=== PATIENT | female | born 1955 | race Caucasian/White ===

== ENCOUNTER → 2018-01-19 12:21 | Outpatient (CLI) | payer BC, SELFPAY ==
[2018-01-19 13:12] LABS: Add Manual Diff / Slide Review NO; Basophils Percent Auto 1.8 % (0-2); Eosinophils Percent Auto 4.3 % (2-4); Hematocrit 43.3 % (36-46); Hemoglobin 14.6 g/dL (12.0-16.0); Lymphocytes Percent Auto 31.5 % (25-40); Mean Corpuscular HGB Conc 33.7 % (30-36); Mean Corpuscular Volume 89.1 fL (80-100); Monocytes Percent Auto 6.9 % (3-14); Neutrophils Absolute Auto 3400 /uL (3000-5900); Neutrophils Percent Auto 55.5 % (50-75); Platelet Count 230 X10^3/uL (150-400); Red Blood Cell Count 4.86 X10^6/uL (4.0-5.2); Red Cell Distribution Width 13.1 % (11.6-14.8); White Blood Cell Count 6.1 X10^3/uL (4.5-11.0)
[2018-01-19 13:52] LABS: Alanine Aminotransferase 24 IU/L (9-52); Albumin 4.4 g/dL (3.5-5.0); Albumin Globulin Ratio 1.2 (1.0-2.8); Alkaline Phosphatase 102 U/L (38-126); Aspartate Aminotransferase 24 IU/L (14-36); Bilirubin Total 0.8 mg/dL (0.2-1.3); Blood Urea Nitrogen 14 mg/dL (7-17); Calcium 8.8 mg/dL (8.4-10.2); Carbon Dioxide 26 mmol/L (22-32); Chloride 104 mmol/L (98-107); Cholesterol 250 mg/dL (140-199); Estimated Glomerular Filt Rate 56.4 mL/min (>60); Globulin 3.6 g/dL (1.7-4.1); Glucose 98 mg/dL (80-110); HDL Cholesterol 55 mg/dL (40-60); HEMOLYSIS 25 (0-50); LDL Cholesterol Calculated 161 mg/dL (<100); Sodium 141 mmol/L (137-145); Triglycerides 168 mg/dL (35-150)
[2018-01-19 14:29] LABS: Thyroid Stimulating Hormone 0.67 uIU/mL (0.47-4.68)
== END ==
PROVIDERS: PCP Family Medicine; Visit Provider Family Medicine
DX: E03.9 Hypothyroidism, unspecified (principal); E78.5 Hyperlipidemia, unspecified
CPT/HCPCS: 36415; 80053; 80061; 84443; 85025

== ENCOUNTER → 2019-07-07 11:57 | Outpatient (CLI) | payer BC, SELFPAY ==
[2019-07-07 12:44] LABS: Add Manual Diff / Slide Review NO; Basophils Absolute Auto 100 /uL (0-100); Basophils Percent Auto 2.1 % (0-2); Eosinophils Absolute Auto 300 /uL (0-450); Hematocrit 41.3 % (36-46); Hemoglobin 13.9 g/dL (12.0-16.0); Lymphocytes Absolute Auto 1900 /uL (1100-4500); Mean Corpuscular HGB Conc 33.7 % (30-36); Mean Corpuscular Hemoglobin 30.4 PG (26-34); Mean Corpuscular Volume 90.1 fL (80-100); Monocytes Absolute Auto 400 /uL (0-900); Monocytes Percent Auto 7.4 % (3-14); Neutrophils Absolute Auto 3000 /uL (1500-7000); Neutrophils Percent Auto 52.5 % (50-75); Platelet Count 230 X10^3/uL (150-400); Red Blood Cell Count 4.58 X10^6/uL (4.0-5.2); Red Cell Distribution Width 13.1 % (11.6-14.8); White Blood Cell Count 5.7 X10^3/uL (4.5-11.0)
[2019-07-07 13:14] LABS: Alanine Aminotransferase 15 IU/L (<35); Albumin 4.3 g/dL (3.5-5.0); Albumin Globulin Ratio 1.4 (1.0-2.8); Alkaline Phosphatase 101 U/L (38-126); Aspartate Aminotransferase 20 IU/L (14-36); Bilirubin Total 0.7 mg/dL (0.2-1.3); Blood Urea Nitrogen 13 mg/dL (7-17); Calcium 9.4 mg/dL (8.4-10.2); Carbon Dioxide 27 mmol/L (22-32); Chloride 106 mmol/L (98-107); Cholesterol 247 mg/dL (140-199); Estimated Glomerular Filt Rate 41.5 mL/min (>60); Glucose 104 mg/dL (80-110); HDL Cholesterol 63 mg/dL (40-60); HEMOLYSIS < 15 (0-50); LDL Cholesterol Calculated 154 mg/dL (<100); Sodium 142 mmol/L (137-145); Total Protein 7.3 g/dL (6.3-8.2); Triglycerides 152 mg/dL (35-150)
[2019-07-07 13:43] LABS: Thyroid Stimulating Hormone 2.52 uIU/mL (0.47-4.68)
== END ==
PROVIDERS: PCP Family Medicine; Visit Provider Family Medicine
DX: E03.9 Hypothyroidism, unspecified (principal); F32.9 Major depressive disorder, single episode, unspecified; F41.9 Anxiety disorder, unspecified; G47.00 Insomnia, unspecified; G47.33 Obstructive sleep apnea (adult) (pediatric); Z68.35 Body mass index [BMI] 35.0-35.9, adult
CPT/HCPCS: 36415; 80053; 80061; 84443; 85025

== ENCOUNTER → 2020-02-06 10:52 | Outpatient (CLI) | payer BC, SELFPAY ==
[2020-02-06 12:44] LABS: BUN Creatinine Ratio 14.2 (6-22); Blood Urea Nitrogen 16 mg/dL (7-17); Calcium 9.6 mg/dL (8.4-10.2); Carbon Dioxide 28 mmol/L (22-32); Chloride 106 mmol/L (98-107); Cholesterol 244 mg/dL (140-199); Estimated Glomerular Filt Rate 48.6 mL/min (>60); Glucose 96 mg/dL (80-110); HDL Cholesterol 65 mg/dL (40-60); HEMOLYSIS < 15 (0-50); LDL Cholesterol Calculated 143 mg/dL (<100); Potassium 4.2 mmol/L (3.4-5.1); Sodium 140 mmol/L (137-145); Triglycerides 181 mg/dL (35-150)
== END ==
PROVIDERS: PCP Family Medicine; Referring Provider Family Medicine; Visit Provider Family Medicine
DX: E78.2 Mixed hyperlipidemia (principal); N17.9 Acute kidney failure, unspecified
CPT/HCPCS: 36415; 80048; 80061

== ENCOUNTER → 2020-10-02 18:23 | Outpatient (CLI) | payer BC, SELFPAY | PROVIDERS: PCP Family Medicine; Visit Provider Physician Assistant | DX: N30.01 Acute cystitis with hematuria (principal) | CPT/HCPCS: 87077; 87086; 87186 ==

== ENCOUNTER 2020-10-10 18:55 | Emergency (ER) | payer BC, SELFPAY ==
[2020-10-10] VITALS (12 sets, daily range): BP systolic 99–126; BP diastolic 55–85; PULSE 62–92; RESP 17–35; TEMP 36.9; O2SAT 92–94; BMI 33.9
[2020-10-10] MEDS: SODIUM CHLORIDE 0.9% 1,000 ML 1000 ML IV ×2 (19:58→22:20)
[2020-10-10] MEDS: ONDANSETRON 4 MG/2 ML INJ IV (19:58)
--- NOTE | 2020-10-10 19:58 | ED.GENADULT ---
HPI - General Adult General Chief complaint: Syncope Stated complaint: dizzy, dx with uti & e coli Time Seen by Provider: 10/10/20 19:57 History of Present Illness HPI narrative: 64-year-old woman with a history depression, hypothyroidism and 2 weeks of dizziness presents with persistent dizziness. She was seen in urgent care on October 02 diagnosed with at UTI treated with Septra the UTI did grow out E coli that was pansensitive. She does not note that this is influenced her dizziness at all. She is lightheaded when she stands up but does not complain of palpitations. She has no shortness of breath. She does not have any known other neurologic complaints. No abdominal pain but she does have bit of nausea that is associated with the dizziness. No diarrhea. No headaches and no lower extremity edema. Related Data Home Medications Medication Instructions Recorded Confirmed Respironics Remstar CPAP #1 ea 01/11/19 10/02/20 Previous Rx's Medication Instructions Recorded sumatriptan succinate 50 mg tablet 50 mg PO Q DAY PRN PRN #14 tab 07/13/19 bupropion HCl 150 mg tablet,12 hr 150 mg PO BID #60 tab 05/20/20 sustained-release acyclovir 400 mg tablet 400 mg PO DAILY #90 tab 08/28/20 levothyroxine 75 mcg tablet 75 mcg PO QAM #90 tab 09/24/20 ondansetron 4 mg PO Q8H PRN #14 tab 10/11/20 Allergies Allergy/AdvReac Type Severity Reaction Status Date / Time codeine [CODEINE] AdvReac Intermediate vomiting Verified 10/02/20 18:09 Review of Systems Review of Systems Narrative: Remainder of complete review of systems is otherwise unremarkable except for that included in the HPI. Patient History Medical History Abnormal Pap smear of cervix (~1983) Anxiety (~2001) Behaviorally induced insufficient sleep syndrome Cervical cancer (~1988) Chicken pox (~1964) Depression (~2001) Headache (~1972) Insomnia with sleep apnea, unspecified Measles (~1964) Migraines (~1986) Mumps (~1965) Obesity (BMI 30-39.9) Seasonal allergies UTI (urinary tract infection) Surgical History Anesthesia History of cholecystectomy (05/09/19) History of hand surgery History of tonsillectomy (~1967) Family History Mother Stroke Cancer Father Suicide Sister Cancer Social History Smoking Status: Never smoker alcohol intake: current Smoking Status: Never smoker Substance Use Type: does not use Exam Narrative Exam Narrative: General: Mildly ill-appearing but in no acute distress. Able to give a complete and coherent history. Well-nourished well-developed. Orthostatic going from supine to sitting HEENT: Moist mucous membranes, normal sclera with reactive pupils, Neck: No JVD, supple, no nuchal rigidity no meningismus Respiratory: Lungs are clear to auscultation, no wheezing no rales no rhonchi. Full and symmetrical air movement Cardiac: Tachycardic but Regular rate and rhythm no murmurs no bruits Abdomen: Soft, tender in the left lower quadrant without rebound or guarding, good bowel tones, no specific hepatosplenomegaly no flank pain Skin: Warm and dry, no rashes Neurologic: Grossly neurologically intact with no obvious asymmetries or abnormalities. Dizziness when standing that is still noticeable wall lying flat without nystagmus and no head position changes evoke the dizziness specifically. Extremities: No trauma, well perfused Psych: Cooperative, appropriate insight and affect Initial Vital Signs Initial Vital Signs: Vital Signs Temperature 98.5 F 10/10/20 19:15 Pulse Rate 92 H 10/10/20 19:15 Respiratory Rate 18 10/10/20 19:15 Blood Pressure 99/61 10/10/20 19:15 Pulse Oximetry 94 10/10/20 19:15 Course Orders Ordered: ED Orders 10/10/20 19:27 EKG-12 Lead Routine 10/10/20 19:40 Complete Blood Count AUTO DIFF Stat Comprehensive Metabolic Panel Stat Lipase Stat Partial Thromboplastin Time Stat Prothrombin Time INR Stat 10/10/20 22:02 CT abdomen pelvis w con Stat 10/10/20 23:25 COVID19 -Nasal swab/Pre-Proc Stat Discontinued Medications Sodium Chloride (Normal Saline 0.9%) 1,000 mls @ 1,000 mls/hr IV BOLUS ONE Stop: 10/10/20 20:52 Last Infusion: 10/10/20 20:52 Dose: 0 mls/hr Documented by: Admin: 10/10/20 19:58 Dose: 1,000 mls/hr Documented by: ADELIA Sodium Chloride (Normal Saline 0.9%) 1,000 mls @ 1,000 mls/hr IV BOLUS ONE Stop: 10/10/20 23:00 Last Infusion: 10/11/20 00:19 Dose: 0 mls/hr Documented by: Admin: 10/10/20 22:20 Dose: 1,000 mls/hr Documented by: ADELIA Metoclopramide HCl (Metoclopramide 10 Mg/2 Ml Inj) 10 mg IV NOW ONE Stop: 10/10/20 22:02 Last Admin: 10/10/20 22:19 Dose: 10 mg Documented by: ADELIA Ondansetron HCl (Ondansetron 4 Mg Odt) 4 mg SL NOW ONE Stop: 10/10/20 19:25 Last Admin: 10/10/20 19:58 Dose: Not Given Documented by: ADELIA Ondansetron HCl (Ondansetron 4 Mg/2 Ml Inj) 4 mg IV NOW ONE Stop: 10/10/20 19:54 Last Admin: 10/10/20 19:58 Dose: 4 mg Documented by: ADELIA Ondansetron HCl (Ondansetron 4 Mg Odt Prepack) 1 bottle MISC SEEINSTR ONE Stop: 10/11/20 00:00 Last Admin: 10/11/20 00:11 Dose: 1 bottle Documented by: ADELIA Vital Signs Vital signs: Vital Signs - 8 hr 10/10/20 19:49 10/10/20 20:00 10/10/20 20:30 Pulse Rate 69 71 68 Respiratory Rate 20 25 H 21 Blood Pressure 111/62 118/67 122/57 L Pulse Oximetry 92 93 94 10/10/20 21:00 10/10/20 21:30 10/10/20 22:00 Pulse Rate 62 62 68 Respiratory Rate 19 17 24 Blood Pressure 121/58 L 125/58 L 126/60 Pulse Oximetry 93 93 92 10/10/20 22:42 10/10/20 23:00 10/10/20 23:01 Pulse Rate 77 76 72 Respiratory Rate 29 H 35 H 28 H Blood Pressure 114/55 L 120/56 L Pulse Oximetry 93 92 92 10/10/20 23:30 Pulse Rate 68 Respiratory Rate 30 H Blood Pressure 124/85 Pulse Oximetry 92 Medical Decision Making Medical Records Medical records reviewed: Yes I reviewed the patient's medical records. Lab Data Lab results reviewed: Yes I reviewed the patient's lab results. Result diagrams: 10/10/20 19:40 10/10/20 19:40 Labs: Lab Results 10/10/20 10/10/20 10/10/20 Range/Units 19:40 19:40 19:40 WBC 7.1 (4.5-11.0) X10^3/uL RBC 4.74 (4.0-5.2) X10^6/uL Hgb 14.1 (12.0-16.0) g/dL Hct 41.9 (36-46) % MCV 88.3 (80-100) fL MCH 29.7 (26-34) PG MCHC 33.6 (30-36) % RDW 13.2 (11.6-14.8) % Plt Count 271 (150-400) X10^3/uL Neut % (Auto) 66.8 (50-75) % Lymph % (Auto) 20.1 L (25-40) % [place] % (Auto) 10.1 (3-14) % Eos % (Auto) 2.2 (2-4) % Baso % (Auto) 0.8 (0-2) % Neut # (Auto) 4700 (6162-2910) /uL Lymph # (Auto) 1400 (7105-8058) /uL [place] # (Auto) 700 (0-900) /uL Eos # (Auto) 200 (0-450) /uL Baso # (Auto) 100 (0-100) /uL PT 14.8 H (10.1-12.7) SECONDS INR 1.3 (0.9-1.3) APTT 31 (26.4-36.2) SECONDS Sodium 134 L (137-145) mmol/L Potassium 4.0 (3.4-5.1) mmol/L Chloride 104 (98-107) mmol/L Carbon Dioxide 20 L (22-32) mmol/L BUN 12 (7-17) mg/dL Creatinine 1.00 (0.52-1.04) mg/dL Estimated GFR 56.0 L (>60) mL/min BUN/Creatinine Ratio 12.0 (6-22) Glucose 124 H (80-110) mg/dL Calcium 8.9 (8.4-10.2) mg/dL Total Bilirubin 0.7 (0.2-1.3) mg/dL AST 70 H (14-36) IU/L ALT 63 H (<35) IU/L Alkaline Phosphatase 143 H (38-126) U/L Total Protein 7.6 (6.3-8.2) g/dL Albumin 3.9 (3.5-5.0) g/dL Globulin 3.7 (1.7-4.1) g/dL Albumin/Globulin Ratio 1.1 (1.0-2.8) Lipase 117 (23-300) U/L SARS-CoV-2 (PCR) (Negative) 10/10/20 Range/Units 23:25 WBC (4.5-11.0) X10^3/uL RBC (4.0-5.2) X10^6/uL Hgb (12.0-16.0) g/dL Hct (36-46) % MCV (80-100) fL MCH (26-34) PG MCHC (30-36) % RDW (11.6-14.8) % Plt Count (150-400) X10^3/uL Neut % (Auto) (50-75) % Lymph % (Auto) (25-40) % [place] % (Auto) (3-14) % Eos % (Auto) (2-4) % Baso % (Auto) (0-2) % Neut # (Auto) (9242-1340) /uL Lymph # (Auto) (4289-9168) /uL [place] # (Auto) (0-900) /uL Eos # (Auto) (0-450) /uL Baso # (Auto) (0-100) /uL PT (10.1-12.7) SECONDS INR (0.9-1.3) APTT (26.4-36.2) SECONDS Sodium (137-145) mmol/L Potassium (3.4-5.1) mmol/L Chloride (98-107) mmol/L Carbon Dioxide (22-32) mmol/L BUN (7-17) mg/dL Creatinine (0.52-1.04) mg/dL Estimated GFR (>60) mL/min BUN/Creatinine Ratio (6-22) Glucose (80-110) mg/dL Calcium (8.4-10.2) mg/dL Total Bilirubin (0.2-1.3) mg/dL AST (14-36) IU/L ALT (<35) IU/L Alkaline Phosphatase (38-126) U/L Total Protein (6.3-8.2) g/dL Albumin (3.5-5.0) g/dL Globulin (1.7-4.1) g/dL Albumin/Globulin Ratio (1.0-2.8) Lipase (23-300) U/L SARS-CoV-2 (PCR) Negative (Negative) Imaging Data CT scan - abdomen/pelvis: Radiologist's Impression: Impression: Patchy ill-defined ground-glass densities bilateral lung bases. Correlate for possibility of atypical pneumonia Moderate hiatal hernia Small hypoattenuation at the root of small-bowel mesentery may be incidental. Minimal inflammatory/infectious process including sclerosing mesenteritis is not excluded Love Galan MD ECG Data Attestation: I personally reviewed and interpreted this ECG as follows: Interpretation: Sinus rhythm at a rate of 77 First degree block Normal axis Nonspecific ST T wave changes No obvious ischemia MDM Narrative Medical decision making narrative: Weeks of dizziness and general malaise with vomiting and diarrhea that have resolved over the last number of days. She has no other specific neurologic symptoms. She is significantly orthostatic, supine her heart rate is 60 and just moving to a sitting position goes up to 80. After L of fluid she still is not produced any urine. Her LFTs are slightly elevated as is alk-phos with no good explanation and no significant liver tenderness. She has had no recent jaundice. With the left lower quadrant tenderness some concerned that there is some pathology that were over looking and will add a CT scan of the abdomen at this time. With the bases of her lungs on CT scan suggesting bilateral patchy infiltrates a COVID test was performed and was negative. She is no longer orthostatic after 2 L of fluid. Given the slight bump in LFTs I do suspect that this is a viral syndrome. She no longer has any evidence of urinary tract infection. She clearly is feeling much better and requests discharge home which I believe is quite safe at this point. There is no evidence of stroke, COVID, sepsis, intra-abdominal infection or surgical indications. No acute coronary syndrome. She is safe for discharge Discharge Plan Departure Patient Disposition: Home Clinical Impression: Orthostatic hypotension, Acute dehydration, Acute viral syndrome, Elevated liver transaminase level Instructions: DI for Orthostatic Hypotension Activity Restrictions/Additional Instructions: Thank you for coming in today You did have a bladder infection and were placed on correct antibiotics to treat this Because the dizziness symptoms started before the bladder infection continued through the bladder infections and care are continuing now, I do not suspect that the bladder infection had anything to do with the dizziness. You had some minor abnormalities with liver studies on your blood work. We sometimes see these minor abnormalities with various viruses. I suspect that you have had some type of virus and should be begin to feel better is most viruses last 7-10 days. Your COVID test was negative here in the emergency department and a CT scan of your abdomen did not have any acute findings. There was a suggestion of some minor abnormalities in your lung bases that may be a resolving viral pneumonia. At this point, you are safe for home discharge. I have given you Zofran, a nausea medicine, to use at home as well as a prescription if needed. Please try to stay as hydrated as possible. If you find that you are getting worse, have new or developing symptoms please return to the ER for evaluation Prescriptions: New ondansetron 4 mg tablet,disintegrating 4 mg PO Q8H PRN (Reason: nausea and vomiting) Qty: 14 RF: 0 No Action bupropion HCl [Wellbutrin SR] 150 mg tablet sustained-release 12 hr 150 mg PO BID Qty: 60 RF: 2 acyclovir 400 mg tablet 400 mg PO DAILY Qty: 90 RF: 0 levothyroxine [Synthroid] 75 mcg tablet 75 mcg PO QAM Qty: 90 RF: 0 sumatriptan succinate [Imitrex] 50 mg tablet 50 mg PO Q DAY PRN PRN (Reason: migraine headache) Qty: 14 RF: 9 (DME) Respironics Remstar CPAP Qty: 1 RF: 0 Referrals: Cory Hansen MD [Primary Care Provider] -
[2020-10-10 20:03] LABS: Add Manual Diff / Slide Review NO; Basophils Absolute Auto 100 /uL (0-100); Basophils Percent Auto 0.8 % (0-2); Eosinophils Absolute Auto 200 /uL (0-450); Eosinophils Percent Auto 2.2 % (2-4); Hematocrit 41.9 % (36-46); Hemoglobin 14.1 g/dL (12.0-16.0); Lymphocytes Absolute Auto 1400 /uL (1100-4500); Lymphocytes Percent Auto 20.1 % (25-40); Mean Corpuscular HGB Conc 33.6 % (30-36); Mean Corpuscular Hemoglobin 29.7 PG (26-34); Mean Corpuscular Volume 88.3 fL (80-100); Monocytes Absolute Auto 700 /uL (0-900); Monocytes Percent Auto 10.1 % (3-14); Neutrophils Absolute Auto 4700 /uL (1500-7000); Neutrophils Percent Auto 66.8 % (50-75); Platelet Count 271 X10^3/uL (150-400); Red Blood Cell Count 4.74 X10^6/uL (4.0-5.2); Red Cell Distribution Width 13.2 % (11.6-14.8); White Blood Cell Count 7.1 X10^3/uL (4.5-11.0)
[2020-10-10 20:06] LABS: Alanine Aminotransferase 63 IU/L (<35); Albumin 3.9 g/dL (3.5-5.0); Albumin Globulin Ratio 1.1 (1.0-2.8); Alkaline Phosphatase 143 U/L (38-126); Aspartate Aminotransferase 70 IU/L (14-36); Bilirubin Total 0.7 mg/dL (0.2-1.3); Blood Urea Nitrogen 12 mg/dL (7-17); Calcium 8.9 mg/dL (8.4-10.2); Carbon Dioxide 20 mmol/L (22-32); Chloride 104 mmol/L (98-107); Globulin 3.7 g/dL (1.7-4.1); Glucose 124 mg/dL (80-110); HEMOLYSIS 34 (0-50); Lipase 117 U/L (23-300); Sodium 134 mmol/L (137-145); Total Protein 7.6 g/dL (6.3-8.2)
[2020-10-10 20:09] LABS: INR 1.3 (0.9-1.3); Prothrombin Time 14.8 SECONDS (10.1-12.7)
[2020-10-10 20:11] LABS: PTT Partial Thromboplastin Tim 31 SECONDS (26.4-36.2)
--- NOTE | 2020-10-10 22:02 | DI.CT.S_ITS ---
PROCEDURE: CT ABDOMEN PELVIS W CON INDICATIONS: LLQ abdominal pain and elevated LFTs TECHNIQUE: After the administration of intravenous contrast, 5 mm thick sections acquired from the diaphragm to the symphysis. 5 mm coronal and sagittal reformats were acquired. For radiation dose reduction, the following was used: automated exposure control, adjustment of mA and/or kV according to patient size. COMPARISON: None. FINDINGS: Image quality: Excellent. ABDOMEN: Lung bases: Ill-defined patchy bibasilar ground-glass densities.. Heart size is normal. Moderate hiatal hernia. Solid organs: Liver is normal in size and enhancement. Gallbladder is surgically absent.. Biliary system is non dilated. Pancreas enhances normally. Spleen is normal in size and enhancement. No adrenal nodules. Kidneys demonstrate normal size and enhancement, without hydronephrosis. Peritoneum and bowel: Bowel loops demonstrate normal wall thickness and caliber. No free fluid or air. Extensive sigmoid diverticulosis. No evidence of acute diverticulitis. Nodes and vessels: No retroperitoneal or mesenteric adenopathy by size criteria. Aorta and inferior vena cava are normal in size. Miscellaneous: No ventral hernias. PELVIS: Genitourinary: Bladder wall thickness is normal. Miscellaneous: No inguinal hernias or adenopathy. Bones: No suspicious bony lesions. No vertebral body compression fractures. IMPRESSION: 1. Ill-defined patchy bibasilar ground-glass densities. Consider viral pneumonia versus other inflammatory process. 2. Moderate hiatal hernia. 3. Extensive sigmoid diverticulosis without evidence of diverticulitis. 4. Remote cholecystectomy. Comment: Final report is concordant with preliminary interpretation provided by [facility]. Dictated by: Mike Clemens M.D. on 10/11/2020 at 9:24 Approved by: Mike Clemens M.D. on 10/11/2020 at 9:29
[2020-10-10] MEDS: METOCLOPRAMIDE 10 MG/2 ML INJ IV (22:19)
[2020-10-10 23:46] LABS: COVID19 -Nasal RAPID Negative (Negative)
[2020-10-11] MEDS: ONDANSETRON 4 MG ODT PREPACK 1 BOTTLE MISC (00:11)
== END 2020-10-11 00:20 | disposition home or self-care (01) ==
PROVIDERS: Emergency Provider Emergency Medicine; PCP Family Medicine
DX: I95.1 Orthostatic hypotension (principal); E86.0 Dehydration; B34.9 Viral infection, unspecified; R74.01 Elevation of levels of liver transaminase levels
CPT/HCPCS: 36415; 74177; 80053; 83690; 85025; 85610; 85730; 87635; 93005; 93010; 96361; 96374; 96375; 99284; C9803; J2405; J2765; Q9967

== ENCOUNTER → 2021-03-20 10:22 | Outpatient (CLI) | payer BC, SELFPAY ==
[2021-03-20 10:50] LABS: Add Manual Diff / Slide Review NO; Basophils Absolute Auto 100 /uL (0-100); Basophils Percent Auto 1.9 % (0-2); Eosinophils Absolute Auto 200 /uL (0-450); Eosinophils Percent Auto 4.1 % (2-4); Lymphocytes Absolute Auto 2100 /uL (1100-4500); Lymphocytes Percent Auto 36.8 % (25-40); Mean Corpuscular HGB Conc 32.5 % (30-36); Mean Corpuscular Hemoglobin 29.7 PG (26-34); Mean Corpuscular Volume 91.2 fL (80-100); Monocytes Absolute Auto 400 /uL (0-900); Monocytes Percent Auto 7.4 % (3-14); Neutrophils Absolute Auto 2800 /uL (1500-7000); Neutrophils Percent Auto 49.8 % (50-75); Platelet Count 254 X10^3/uL (150-400); Red Blood Cell Count 4.72 X10^6/uL (4.0-5.2); Red Cell Distribution Width 13.3 % (11.6-14.8); White Blood Cell Count 5.7 X10^3/uL (4.5-11.0)
[2021-03-20 11:36] LABS: Alanine Aminotransferase 21 IU/L (<35); Albumin 4.4 g/dL (3.5-5.0); Albumin Globulin Ratio 1.4 (1.0-2.8); Alkaline Phosphatase 88 U/L (38-126); Aspartate Aminotransferase 24 IU/L (14-36); BUN Creatinine Ratio 10.1 (6-22); Bilirubin Total 0.8 mg/dL (0.2-1.3); Blood Urea Nitrogen 14 mg/dL (7-17); Calcium 9.1 mg/dL (8.4-10.2); Carbon Dioxide 31 mmol/L (22-32); Chloride 107 mmol/L (98-107); Cholesterol 258 mg/dL (140-199); Estimated Glomerular Filt Rate 38.2 mL/min (>60); Globulin 3.2 g/dL (1.7-4.1); Glucose 93 mg/dL (80-110); HDL Cholesterol 65 mg/dL (40-60); HEMOLYSIS < 15 (0-50); LDL Cholesterol Calculated 163 mg/dL (<100); Sodium 142 mmol/L (137-145); Total Protein 7.6 g/dL (6.3-8.2); Triglycerides 148 mg/dL (35-150)
[2021-03-20 11:55] LABS: Free T3, Triiodothyronine Free 3.03 pg/mL (2.77-5.27); Free T4, Direct Thyroxine 1.28 ng/dL (0.78-2.19)
[2021-03-20 12:09] LABS: Thyroid Stimulating Hormone 3.73 uIU/mL (0.47-4.68)
[2021-03-20 12:21] LABS: Vitamin D 25 Hydroxy (D3) 24.5 ng/mL (30.0-100.0)
== END ==
PROVIDERS: PCP Family Medicine; Referring Provider Family Medicine; Visit Provider Family Medicine
DX: E03.9 Hypothyroidism, unspecified (principal); E78.2 Mixed hyperlipidemia; Z12.11 Encounter for screening for malignant neoplasm of colon; Z13.21 Encounter for screening for nutritional disorder
CPT/HCPCS: 36415; 80053; 80061; 82306; 84439; 84443; 84481; 85025

== ENCOUNTER → 2021-07-26 08:58 | Outpatient (CLI) | payer BC, SELFPAY ==
[2021-07-26 11:24] LABS: Alanine Aminotransferase 14 IU/L (<35); Albumin 4.2 g/dL (3.5-5.0); Albumin Globulin Ratio 1.4 (1.0-2.8); Alkaline Phosphatase 89 U/L (38-126); Aspartate Aminotransferase 21 IU/L (14-36); BUN Creatinine Ratio 11.5 (6-22); Bilirubin Total 0.6 mg/dL (0.2-1.3); Blood Urea Nitrogen 14 mg/dL (7-17); Calcium 9.4 mg/dL (8.4-10.2); Carbon Dioxide 26 mmol/L (22-32); Chloride 107 mmol/L (98-107); Cholesterol 234 mg/dL (140-199); Estimated Glomerular Filt Rate 44.4 mL/min (>60); Free T3, Triiodothyronine Free 3.16 pg/mL (2.77-5.27); Free T4, Direct Thyroxine 1.52 ng/dL (0.78-2.19); Globulin 3.1 g/dL (1.7-4.1); Glucose 97 mg/dL (80-110); HDL Cholesterol 63 mg/dL (40-60); HEMOLYSIS 18 (0-50); LDL Cholesterol Calculated 140 mg/dL (<100); Sodium 140 mmol/L (137-145); Total Protein 7.3 g/dL (6.3-8.2); Triglycerides 155 mg/dL (35-150)
[2021-07-26 11:25] LABS: Vitamin D 25 Hydroxy (D3) 35.6 ng/mL (30.0-100.0)
[2021-07-26 11:38] LABS: Thyroid Stimulating Hormone 0.055 uIU/mL (0.47-4.68)
== END ==
PROVIDERS: PCP Family Medicine; Referring Provider Family Medicine; Visit Provider Family Medicine
DX: E03.9 Hypothyroidism, unspecified (principal); E78.2 Mixed hyperlipidemia; N18.32 Chronic kidney disease, stage 3b; Z13.21 Encounter for screening for nutritional disorder
CPT/HCPCS: 36415; 80053; 80061; 82306; 84439; 84443; 84481

== ENCOUNTER → 2024-09-15 08:48 | Outpatient (CLI) | payer OTHER, SELFPAY ==
[2024-09-15 10:07] LABS: Add Manual Diff / Slide Review NO; Basophils Absolute Auto 200 /uL (0-100); Basophils Percent Auto 2.6 % (0-2); Eosinophils Absolute Auto 200 /uL (0-450); Eosinophils Percent Auto 3.6 % (2-4); Hematocrit 40.6 % (36-46); Hemoglobin 13.4 g/dL (12.0-16.0); Lymphocytes Absolute Auto 2000 /uL (1100-4500); Lymphocytes Percent Auto 31.1 % (25-40); Mean Corpuscular HGB Conc 32.9 % (30-36); Mean Corpuscular Volume 91.2 fL (80-100); Monocytes Absolute Auto 500 /uL (0-900); Monocytes Percent Auto 7.4 % (3-14); Neutrophils Absolute Auto 3600 /uL (1500-7000); Neutrophils Percent Auto 55.3 % (50-75); Platelet Count 230 X10^3/uL (150-400); Red Blood Cell Count 4.46 X10^6/uL (4.0-5.2); Red Cell Distribution Width 14.6 % (11.6-14.8); White Blood Cell Count 6.5 X10^3/uL (4.5-11.0)
[2024-09-15 10:49] LABS: Alanine Aminotransferase 14 IU/L (<35); Albumin 4.2 g/dL (3.5-5.0); Albumin Globulin Ratio 1.4 (1.0-2.8); Alkaline Phosphatase 83 U/L (38-126); Aspartate Aminotransferase 22 IU/L (14-36); Bilirubin Total 0.8 mg/dL (0.2-1.3); Blood Urea Nitrogen 16 mg/dL (7-17); C-Reactive Protein Quant < 0.5 mg/dL (<1.0); Calcium 9.4 mg/dL (8.4-10.2); Carbon Dioxide 24 mmol/L (22-32); Chloride 107 mmol/L (98-107); Cholesterol 267 mg/dL (140-199); Estimated Glomerular Filt Rate 44 mL/min (>60); Globulin 3.1 g/dL (1.7-4.1); Glucose 96 mg/dL (80-110); HDL Cholesterol 69 mg/dL (40-60); HEMOLYSIS 16 (0-50); LDL Cholesterol Calculated 175 mg/dL (<100); Potassium 4.3 mmol/L (3.4-5.1); Sodium 140 mmol/L (137-145); Total Protein 7.3 g/dL (6.3-8.2); Triglycerides 117 mg/dL (35-150)
[2024-09-15 11:35] LABS: Free T4, Direct Thyroxine 0.86 ng/dL (0.78-2.19)
== END ==
PROVIDERS: PCP Family Medicine; Referring Provider Family Medicine; Visit Provider Family Medicine
DX: N18.30 Chronic kidney disease, stage 3 unspecified (principal); E78.2 Mixed hyperlipidemia; E03.9 Hypothyroidism, unspecified
CPT/HCPCS: 36415; 80053; 80061; 84439; 84443; 85025; 86140

== ENCOUNTER → 2024-11-23 13:58 | Outpatient (CLI) | payer OTHER, SELFPAY ==
--- NOTE | 2024-11-23 14:04 | DI.MG.S_ITS ---
MM screening mammo BI: 11/23/2024. BI-RADS: 1 CLINICAL: 69-year old female for bilateral screening mammogram. Tyrer-Cuzick lifetime risk of 20.0%. Current reported family history of breast cancer: sister and maternal aunt. PRIOR EXAMS No prior examinations available. MAMMOGRAPHY TECHNIQUE: 2D and 3D (tomosynthesis) digital mammographic views obtained, with additional images as needed for full coverage. Current study was also evaluated with a Computer Aided Detection (CAD) system. DENSITY C. The breasts are heterogeneously dense, which may obscure small masses. MAMMOGRAPHY FINDINGS Bilateral: No suspicious mass, asymmetry, microcalcification, or other abnormality seen. IMPRESSION: * No evidence of malignancy. RECOMMENDATIONS Bilateral * According to the Tyrer-Cuzick Risk Assessment Model, based on the information provided your patient has a greater than 20% lifetime risk for developing breast cancer. Consider supplemental screening with breast MRI and participation in a high risk screening program. * Annual screening mammography. OVERALL ASSESSMENT CATEGORY BI-RADS-1: Negative. The [employer] recommends annual screening mammography beginning at age 40 for women with average risk of breast cancer. ELECTRONICALLY SIGNED: Michael Gutierrez M.D. on 11/23/2024 at 05:47:21 PM PT Interpreting Station ID: [id number]
--- NOTE | 2024-11-23 14:04 | DI.RAD.S_ITS ---
PROCEDURE: XR DEXA AXIAL SKELETON INDICATIONS: SCREENING COMPARISON: None. FINDINGS: Lumbar Spine: Bone mineral density 1.137 g/cm2, T score 0.8. Left Femoral Neck: Bone mineral density 0.765 g/cm2, T score -0.8. Left Hip: Bone mineral density 0.909 g/cm2, T score -0.3. Fracture Risk Calculation (when applicable): 10-year fracture risk of a major osteoporotic fracture 13 percent and of a hip fracture 0.9 percent. (T score greater or equal to -1.0 to: NORMAL) (T score from -1.1 to -2.4: OSTEOPENIA) (T score less than or equal to -2.5: OSTEOPOROSIS) IMPRESSION: Normal bone density of the lumbar spine, left femoral neck, and left hip. Follow-up guidelines as follows: Osteoporosis: Consider a repeat DEXA and Vertebral Fracture Assessment (VFA) exam in 2 years or sooner if medically necessary, to reassess this patient's status. Osteopenia: Consider a repeat DEXA in 2-3 years to reassess this patient's status, or if there is a new clinical indication. Normal: Consider a repeat DEXA in 5 years or sooner, or if there is a new clinical indication. All treatment decisions require clinical judgment and consideration of individual patient factors, including patient preferences, comorbidities, previous drug use, risk factors not captured in the FRAX model (e.g., frailty, falls, vitamin D deficiency, increased bone turnover, interval significant decline in bone density ) and possible under- or over-estimation of fracture risk by FRAX. In addition, the NOF Guide recommends that FDA-approved medical therapies be considered in postmenopausal women and men age >= 50 years with a: * Hip or vertebral (clinical or morphometric) fracture * T-score of <=-2.5 at the spine or hip * Ten-year fracture probability by FRAX of >= 3% for hip fracture or >=20% for major osteoporotic fracture. Dictated by: Irwin Chapman M.D. on 11/23/2024 at 17:01 Approved by: Irwin Chapman M.D. on 11/23/2024 at 17:01
== END ==
PROVIDERS: PCP Family Medicine; Referring Provider Family Medicine; Visit Provider Family Medicine
DX: Z12.31 Encounter for screening mammogram for malignant neoplasm of breast (principal); Z80.3 Family history of malignant neoplasm of breast; R92.333 Mammographic heterogeneous density, bilateral breasts; Z13.820 Encounter for screening for osteoporosis; Z78.0 Asymptomatic menopausal state
CPT/HCPCS: 77063; 77067; 77080